=== PATIENT | female | born 1965 | race Caucasian/White ===

== ENCOUNTER → 2017-07-17 | Outpatient (CLI) | payer BC ==
--- NOTE | 2017-07-18 12:09 | MM ---
Reason for exam: screening (asymptomatic). Last mammogram was performed 1 year and 10 months ago. History: Family history of breast cancer in paternal aunt. Benign US LT VAD breast biopsy of the left breast, August 24, 2011. Took hormonal contraceptives for 13 years beginning at age 19. Physical Findings: A clinical breast exam by your physician is recommended on an annual basis and results should be correlated with mammographic findings. MG Screening Mammo w CAD Bilateral CC and MLO view(s) were taken. Prior study comparison: September 30, 2015, bilateral MG screening mammo w CAD. August 29, 2012, bilateral digital screening mammo w/CAD. The breast tissue is heterogeneously dense. This may lower the sensitivity of mammography. No suspicious abnormality. Left biopsy marker noted. No significant changes when compared with prior studies. ASSESSMENT: Negative, BI-RAD 1 RECOMMENDATION: Routine screening mammogram of both breasts in 1 year.
== END | disposition home or self-care (01) ==
LOC: RADMAMWWP 06:50
PROVIDERS: ATTEND Family Medicine
DX: Z12.31 Encounter for screening mammogram for malignant neoplasm of breast (principal)
CPT/HCPCS: 77067

== ENCOUNTER → 2020-06-12 | Outpatient (CLI) | payer OTHER ==
--- NOTE | 2020-06-12 08:17 | CTL ---
EXAMINATION TYPE: CT Low Dose Lung DATE OF EXAM ORDERED: 06/12/2020 COMPARISON: None HISTORY: . Low Dose CT Lung Screening CT DLP: 47.[address] CTDI: 1.4 mGy IV CONTRAST USED: None. SCREENING VISIT: First visit COMPARISON: None. TECHNIQUE: Low dose computed tomography scan was performed through the chest at 1 millimeter thick se ctions and reconstructed images in the coronal plane at [address] DIAGNOSTIC QUALITY: Satisfactory FINDINGS: LUNG NODULES: Not presentLeft lung: no nodules identified.Right lung: no nodules identified. LUNGS: COPD: Severity: None Fibrosis: Severity:None Lymph nodes: None Other findings: None RIGHT PLEURAL SPACE: Effusion: None Calcification: None Thickening: None Pneumothorax: None LEFT PLEURAL SPACE: Effusion: None Calcification: None Thickening: None Pneumothorax: None HEART: Heart Size: Mildly enlarged Coronary calcification: Mild Pericardial effusion: None OTHER FINDINGS: Upper abdomen: No significant abnormality Bony thorax: Degenerative changes Supraclavicular region: No significant abnormalityOther: No significant abnormalityI IMPRESSION: No suspicious pulmonary nodules identified. FOLLOW UP CT CHEST RECOMMENDATION: Follow-up screening in one year CT LUNG RAD: LUNG RAD CATEGORY 1 negative
== END | disposition home or self-care (01) ==
LOC: RADCTMAIN 07:47
PROVIDERS: ATTEND Family Medicine
DX: Z12.2 Encounter for screening for malignant neoplasm of respiratory organs (principal); F17.210 Nicotine dependence, cigarettes, uncomplicated
CPT/HCPCS: 71271

== ENCOUNTER 2020-08-11 08:38 | Day surgery (SDC) | payer OTHER ==
[2020-08-07 09:26] VITALS: BMI 18.3
[~2020-08-11 08:38] MED LIST: LACTATED RINGERS 1,000 ML IV SCH; LIDOCAINE 1% (10MG/ML) FOR IV START INTRADERMA PRN
[2020-08-11] MEDS ORDERED: PROPOFOL 10 MG/ML 20 ML VIAL IV ONE (09:09)
[2020-08-11 09:10] VITALS: RESP 16; TEMP 98.7
--- NOTE | 2020-08-11 09:25 | P.GSHP ---
History of Present Illness H&P Date: 08/11/20 Chief Complaint: History of colon polyps Patient is here today for colonoscopy. Last colonoscopy 2018. Patient has residual cecal adenomatous polyp. No bowel complaints. Past Medical History Past Medical History: Asthma, Osteoarthritis (OA) Additional Past Medical History / Comment(s): allergy induced asthma, allergies, hx. colon polyps History of Any Multi-Drug Resistant Organisms: None Reported Past Surgical History: Section, Tonsillectomy Additional Past Surgical History / Comment(s): multiple surg. right wrist, co lonoscopy Past Anesthesia/Blood Transfusion Reactions: No Reported Reaction Smoking Status: Current every day smoker - Past Family History Father Family Medical History: Cancer Medications and Allergies Home Medications Medication Instructions Recorded Confirmed Type Albuterol Inhaler (Mhu) [Ventolin 1 - 2 puff INHALATION Q6HR PRN 12/31/15 08/11/20 History Hfa Inhaler] Calcium Carbonate [Calcium] 600 mg PO DAILY 12/31/15 08/11/20 History Cholecalciferol [Vitamin D3] 1,000 unit PO DAILY 12/31/15 08/11/20 History Cyanocobalamin [Vitamin B-12] 500 mcg PO DAILY 12/31/15 08/11/20 History Loratadine [Claritin] 10 mg PO DAILY 12/31/15 08/11/20 History Multivit with Calcium,Iron,Min 1 each PO DAILY 12/31/15 08/11/20 History [Women's Daily Multivitamin] Vitamin B Complex 1 each PO DAILY 12/31/15 08/11/20 History Vitamin E 400 unit PO DAILY 08/07/20 08/11/20 History Allergies Allergy/AdvReac Type Severity Reaction Status Date / Time cefpodoxime proxetil Allergy Rash/Hives Verified 08/11/20 08:51 [From Vantin] cephalexin monohydrate Allergy Rash/Hives Verified 08/11/20 08:51 [From Keflex] erythromycin base Allergy Rash/Hives Verified 08/11/20 08:51 Penicillins Allergy Rash/Hives Verified 08/11/20 08:51 Tetracyclines Allergy Rash/Hives Verified 08/11/20 08:51 tobramycin Allergy Rash/Hives Verified 08/11/20 08:51 Surgical - Exam Vital Signs Temp Pulse Resp BP Pulse Ox 98.7 F 74 16 125/78 97 08/11/20 09:05 08/11/20 09:05 08/11/20 09:05 08/11/20 09:05 08/11/20 09:05 Physical exam: General: Well-developed, well-nourished HEENT: Normocephalic, sclerae nonicteric Abdomen: Nontender, nondistended Extremities: No edema Neuro: Alert and oriented Assessment and Plan (1) Colon cancer screening Narrative/Plan: Will proceed with colonoscopy at this time Current Visit: No Status: Acute Code(s): Z12.11 - ENCOUNTER FOR SCREENING FOR MALIGNANT NEOPLASM OF COLON SNOMED Code(s): 491196461
--- NOTE | 2020-08-11 09:41 | P.PCN ---
Date of Procedure: 08/11/20 Procedure(s) Performed: PREOPERATIVE DIAGNOSIS: Colon cancer screening with history of polyps POSTOPERATIVE DIAGNOSIS: Normal exam PROCEDURE: Colonoscopy ANESTHESIA: MAC SURGEON: Vik Rendon M.D. SPECIMENS: None ENDOSCOPIC PROCEDURE: The patient was placed on the endoscopy table in the left decubitus position. The Olympus colonoscope was inserted into the anus and passed under direct visualization to the base of the cecum. The appendiceal orifice was visualized. From that point the scope was slowly withdrawn inspecting all surfaces carefully. There were no neoplastic inflammatory or polypoid lesions throughout the cecum, ascending, transverse, descending, sigmoid and rectum. There was no visible diverticulosis noted. Digital rectal examination was normal. The patient was taken to the recovery room in stable condition per anesthesia guidelines. RECOMMENDATIONS: Resume diet. Follow-up colonoscopy 5 years.
[2020-08-11 09:55] VITALS: BP 104/66; PULSE 58
== END 2020-08-11 10:27 | disposition home or self-care (01) ==
LOC: ORWHC2ENDO 08:38
PROVIDERS: ATTEND Surgery
DX: Z12.11 Encounter for screening for malignant neoplasm of colon (principal); J45.909 Unspecified asthma, uncomplicated; M19.90 Unspecified osteoarthritis, unspecified site; F17.210 Nicotine dependence, cigarettes, uncomplicated; Z86.010 Personal history of colon polyps; Z80.9 Family history of malignant neoplasm, unspecified; Z88.1 Allergy status to other antibiotic agents; Z88.0 Allergy status to penicillin; Z88.8 Allergy status to other drugs, medicaments and biological substances; Z79.899 Other long term (current) drug therapy
CPT/HCPCS: 45378; J2704

== ENCOUNTER → 2020-08-12 | Outpatient (CLI) | payer OTHER ==
--- NOTE | 2020-08-12 12:58 | BD ---
EXAMINATION TYPE: Axial Bone Density DATE OF EXAM: 08/12/2020 COMPARISON: Prior DEXA study report 2005 CLINICAL HISTORY: Postmenopausal female Height: 65 Weight: 116.1 FRAX RISK QUESTIONS: Alcohol (3 or more units per day): no Family History (Parent hip fracture): no Glucocorticoids (More than 3mos): no (Ex: prednisone, prednisolone, methylprednisolone, dexamethasone, and hydrocortisone). History of Fracture in Adulthood: no Secondary Osteoporosis: 1. Type 1 Diabetes: no 2. Hyperthyroidism: no 3. Menopause before 45: no 4. Malnutrition: no 5. Chronic liver disease: no Rheumatoid Arthritis: no Current Tobacco Use: yes RISK FACTORS HISTORY OF: Surgery to Spine/Hip(right/left)/Wrist (right/left): no Family History of Osteoporosis: yes Active: yes Diet low in dairy products/other sources of calcium: no Postmenopausal woman: age 53 Lost more than 2 inches in height since high school: no MEDICATIONS: allergy meds Additional History: EXAM MEASUREMENTS: Bone mineral densitometry was performed using the [employer]. Bone mineral density as measured about the Lumbar spine is: ----- L1-L4(G/cm2): 1.293 T Score Values are as follows: ----- L2: 0.0 ----- L3: 1.5 ----- L4: 2.2 ----- L1-L4: 0.9 Bone mineral density has: decreased -2.0 % since study of: 04.14.2006 Bone mineral density about the R hip (g/cm2): 0.798 Bone mineral density about the L hip (g/cm2): 0.869 T Score values are as follows: -----R Neck: -1.8 -----L Neck: -1.2 -----R Total: -1.0 -----L Total: -0.6 Bone mineral density has: decreased -12.8 % since study of: 04.14.2006 IMPRESSION: Osteopenia (T Score between -2.5 and -1). There is slightly increased risk of fracture and the patient may be considered for treatment. Re-Screen 2-5 years. NOTE: T-SCORE=SD OF THE YOUNG ADULT MEAN.
--- NOTE | 2020-08-13 13:26 | MM ---
Reason for exam: screening (asymptomatic). Last mammogram was performed 3 years and 1 month ago. History: Family history of breast cancer in paternal aunt. Benign US LT VAD breast biopsy of the left breast, August 24, 2011. Took hormonal contraceptives for 13 years beginning at age 19. Physical Findings: A clinical breast exam by your physician is recommended on an annual basis and results should be correlated with mammographic findings. MG Screening Mammo w CAD Bilateral CC, MLO, and XCCL view(s) were taken. Prior study comparison: July 17, 2017, bilateral MG screening mammo w CAD. September 30, 2015, bilateral MG screening mammo w CAD. The breast tissue is heterogeneously dense. This may lower the sensitivity of mammography. Previous mammotome biopsy in the left breast. There is no discrete abnormality. ASSESSMENT: Benign, BI-RAD 2 RECOMMENDATION: Routine screening mammogram of both breasts in 1 year.
== END | disposition home or self-care (01) ==
LOC: RADMAMWWP 08:26
PROVIDERS: ATTEND Family Medicine
DX: Z12.31 Encounter for screening mammogram for malignant neoplasm of breast (principal); Z80.3 Family history of malignant neoplasm of breast; M85.80 Other specified disorders of bone density and structure, unspecified site
CPT/HCPCS: 77067; 77080

== ENCOUNTER → 2022-02-22 | Outpatient (CLI) | payer OTHER ==
--- NOTE | 2022-02-22 16:15 | MM ---
Reason for Exam: Additional evaluation requested from abnormal screening. Last screening mammogram was performed less than 1 month ago. Patient History: Menarche at age 10. First Full-Term at age 21. Postmenopausal. Patient has history of breast feeding. Hormonal Contraceptives for 13 years from age 19 until age 32. 08/24/2011, Benign Core Biopsy on the left side. Paternal aunt had breast cancer. Risk Values: Liane 5 year model risk: 1.5%. NCI Lifetime model risk: 9.1%. Prior Study Comparison: 08/12/2011 Bilateral Diagnostic Mammogram, [facility]. 08/12/2011 Bilateral Diagnostic Ultrasound, [facility]. 02/27/2012 Left Diagnostic Ultrasound, [facility]. 08/29/2012 Bilateral Screening Mammogram, [facility]. 09/30/2015 Bilateral Screening Mammogram, [facility]. 07/17/2017 Bilateral Screening Mammogram, [facility]. 08/12/2020 Bilateral Screening Mammogram, [facility]. 02/16/2022 Bilateral MG screening mammo w CAD, [facility]. Tissue Density: Left: The breast tissue is heterogeneously dense. This may lower the sensitivity of mammography. Findings: Analyzed By CAD. There is a persistent circumscribed density within the medial aspect left breast measuring 0.4 cm in diameter and located 5 cm from the nipple. This area appears to correspond to the ultrasound abnormality of the lymph node. Short-term follow-up in 6 months can be performed. Overall Assessment: Probably benign, BI-RAD 3 Management: Diagnostic Mammogram of the left breast in 6 months. Diagnostic Breast Ultrasound of the left breast in 6 months. A negative mammogram report should not preclude additional follow up of suspicious palpable abnormalities. Patient should continue monthly self breast exam. A clinical breast exam by your physician is recommended on an annual basis and results should be correlated with mammographic findings. Electronically signed and approved by: Jose Guallpa D.O. Radiologis
--- NOTE | 2022-02-22 16:15 | USB ---
Patient History: Menarche at age 10. First Full-Term at age 21. Postmenopausal. Patient has history of breast feeding. Hormonal Contraceptives for 13 years from age 19 until age 32. 08/24/2011, Benign Core Biopsy on the left side. Paternal aunt had breast cancer. Risk Values: Liane 5 year model risk: 1.5%. NCI Lifetime model risk: 9.1%. Technique: Method: Targeted. Prior Study Comparison: 07/17/2017 Bilateral Screening Mammogram, [facility]. 08/12/2020 Bilateral Screening Mammogram, [facility]. 02/16/2022 Bilateral MG screening mammo w CAD, [facility]. Findings: The medial section of the breast of the left breast, the axilla of the left breast and the retroareolar of the left breast were scanned. Electronically signed and approved by: Jose Guallpa D.O. Radiologis
== END | disposition home or self-care (01) ==
LOC: RADMAMWWP 14:43
PROVIDERS: ATTEND Family Medicine
DX: R92.8 Other abnormal and inconclusive findings on diagnostic imaging of breast (principal); Z78.0 Asymptomatic menopausal state; Z80.3 Family history of malignant neoplasm of breast
CPT/HCPCS: 77065

== ENCOUNTER → 2022-08-15 | Outpatient (CLI) | payer OTHER ==
--- NOTE | 2022-08-15 08:46 | MM ---
Reason for Exam: Follow-up at short interval from prior study. Last screening mammogram was performed 6 month(s) ago. Patient History: Menarche at age 10. First Full-Term at age 21. Postmenopausal. Patient has history of breast feeding. Hormonal Contraceptives for 13 years from age 19 until age 32. 08/24/2011, Benign Core Biopsy on the left side. Paternal aunt had breast cancer. Risk Values: Liane 5 year model risk: 1.5%. NCI Lifetime model risk: 9.1%. Prior Study Comparison: 09/30/2015 Bilateral Screening Mammogram, [facility]. 07/17/2017 Bilateral Screening Mammogram, [facility]. 08/12/2020 Bilateral Screening Mammogram, [facility]. 02/16/2022 Bilateral MG screening mammo w CAD, [facility]. 02/22/2022 Left MG work up mamm w CAD LT, [facility]. Tissue Density: Left: The breast tissue is heterogeneously dense. This may lower the sensitivity of mammography. Findings: Analyzed By CAD. Mammotome biopsy clip left breast redemonstrated. There are 2-3 small benign-appearing round calcifications in the left breast redemonstrated. Roughly 4 mm oval up secured mass in the middle to posterior depth medial aspect left breast has similar appearance to most recent mammogram. No new or enlarging masses. Overall Assessment: Incomplete: need additional imaging evaluation, BI-RAD 0 Management: Diagnostic Breast Ultrasound of the left breast. Targeted ultrasound left breast. Patient should continue monthly self-breast exams. A clinical breast exam by your physician is recommended on an annual basis. This exam should not preclude additional follow-up of suspicious palpable abnormalities. Note on Liane scores and lifetime risk: 1. A Liane score greater than 3% is considered moderate risk. If this is the case, consider specialist referral to assess eligibility for a risk reducing agent. 2. If overall lifetime risk for the development of breast cancer is 20% or higher, the patient may qualify for future screening with alternating mammogram and breast MRI. Electronically signed and approved by: Devin Medrano M.D.
--- NOTE | 2022-08-15 09:14 | USB ---
Reason for Exam: Follow-up at short interval from prior study. Patient History: Menarche at age 10. First Full-Term at age 21. Postmenopausal. Patient has history of breast feeding. Hormonal Contraceptives for 13 years from age 19 until age 32. 08/24/2011, Benign Core Biopsy on the left side. Paternal aunt had breast cancer. Risk Values: Liane 5 year model risk: 1.5%. NCI Lifetime model risk: 9.1%. Technique: Method: Targeted. Prior Study Comparison: 08/12/2020 Bilateral Screening Mammogram, [facility]. 02/16/2022 Bilateral MG screening mammo w CAD, [facility]. 02/22/2022 Left MG work up mamm w CAD LT, [facility]. Findings: The lower outer quadrant of the left breast, the axilla of the left breast and the retroareolar of the left breast were scanned. Targeted ultrasound left breast shows 4 x 2 x 5 mm oval hypoechoic lesion 8:00 position and slightly larger by 3 x 4 mm oval anechoic lesion at 9:00 position. Both are similar to prior ultrasound. No new solid or cystic lesion seen. Overall Assessment: Benign, BI-RAD 2 Management: Screening Mammogram of both breasts in 7 months. Back on annual schedule. Results were given to the patient verbally at the time of exam. Electronically signed and approved by: Devin Medrano M.D.
== END | disposition home or self-care (01) ==
LOC: RADMAMWWP 08:10
PROVIDERS: ATTEND Family Medicine
DX: R92.8 Other abnormal and inconclusive findings on diagnostic imaging of breast (principal); N63.20 Unspecified lump in the left breast, unspecified quadrant; Z78.0 Asymptomatic menopausal state; Z80.3 Family history of malignant neoplasm of breast
CPT/HCPCS: 77065

== ENCOUNTER → 2023-04-04 | Outpatient (CLI) | payer OTHER ==
--- NOTE | 2023-04-04 17:33 | BD ---
EXAMINATION TYPE: Axial Bone Density DATE OF EXAM: 04/04/2023 CLINICAL HISTORY: 58 years old Female. ICD-10 CODE: Z78.0 post menopausal Height: 65 Weight: 112.1 FRAX RISK QUESTIONS: Alcohol (3 or more units per day): no Family History (Parent hip fracture): no Glucocorticoids (More than 3mos): no (Ex: prednisone, prednisolone, methylprednisolone, dexamethasone, and hydrocortisone). History of Fracture in Adulthood: no Secondary Osteoporosis: 1. Type 1 Diabetes: no 2. Hyperthyroidism: no 3. Menopause before 45: no 4. Malnutrition: no 5. Chronic liver disease: no Rheumatoid Arthritis: no Current Tobacco Use: yes RISK FACTORS HISTORY OF: Surgery to Spine/Hip(right/left)/Wrist (right/left): no Additional History: EXAM MEASUREMENTS: Bone mineral densitometry was performed using the [email or web address] System. Bone mineral density as measured about the Lumbar spine is: ----- L1-L4(G/cm2): 1.254 T Score Values are as follows: ----- L1: -0.3 ----- L2: -0.2 ----- L3: 1.1 ----- L4: 1.5 ----- L1-L4: 0.6 Z Score Values are as follows: ----- L1: 1.2 ----- L2: 1.4 ----- L3: 2.7 ----- L4: 3.0 ----- L1-L4: 2.1 Bone mineral density has: decreased -3.0 % since study of: 08.02.2020 Bone mineral density about the R hip (g/cm2): 0.835 Bone mineral density about the L hip (g/cm2): 0.893 T Score values are as follows: -----R Neck: -2.1 -----L Neck: -1.6 -----R Total: -1.4 -----L Total: -0.9 Z Score values are as follows: -----R Neck: -0.6 -----L Neck: -0.1 -----R Total: -0.2 -----L Total: 0.2 Bone mineral density has: decreased -5.1 % since study of: 4.18.2020 FRAX%s: The graph provided illustrates a 8.2% chance for a major osteoporotic fx and a 1.9% chance fo r the hips probability for fx in 10 years time. IMPRESSION: Osteopenia (T Score between -2.5 and -1). There is slightly increased risk of fracture and the patient may be considered for treatment. Re-Screen 2-5 years. NOTE: T-SCORE=SD OF THE YOUNG ADULT MEAN.
--- NOTE | 2023-04-05 08:45 | MM ---
Reason for Exam: Screening (asymptomatic). Last mammogram was performed 1 year(s) and 1 month(s) ago. Patient History: Menarche at age 10. First Full-Term at age 21. Postmenopausal. Patient has history of breast feeding. Hormonal Contraceptives for 13 years from age 19 until age 32. 08/24/2011, Benign Core Biopsy on the left side. Paternal aunt had breast cancer. Risk Values: Liane 5 year model risk: 1.6%. NCI Lifetime model risk: 8.9%. Prior Study Comparison: 02/16/2022 Bilateral MG screening mammo w CAD, [facility]. 02/22/2022 Left MG work up mamm w CAD LT, [facility]. 08/15/2022 Left MG diagnostic mammo LT w CAD, [facility]. Tissue Density: The breast tissue is heterogeneously dense. This may lower the sensitivity of mammography. Findings: Analyzed By CAD. There is no suspicious group of microcalcifications or new suspicious mass in either breast. Overall Assessment: Benign, BI-RAD 2 Management: Screening Mammogram of both breasts in 1 year. . Patient should continue monthly self-breast exams. A clinical breast exam by your physician is recommended on an annual basis. This exam should not preclude additional follow-up of suspicious palpable abnormalities. Note on Liane scores and lifetime risk: 1. A Liane score greater than 3% is considered moderate risk. If this is the case, consider specialist referral to assess eligibility for a risk reducing agent. 2. If overall lifetime risk for the development of breast cancer is 20% or higher, the patient may qualify for future screening with alternating mammogram and breast MRI. Electronically signed and approved by: Pierre Paige M.D. Radiologis
--- NOTE | 2023-04-08 16:09 | CTL ---
EXAMINATION TYPE: CT Low Dose Lung DATE OF EXAM: 04/04/2023 8:13 AM CLINICAL INDICATION:Female, 58 years old with history of Z12.2 Screen F17.210 Nicotine dependence; pe rsonal h/o tobacco use, current smoker 1 ppd x40 years , history of tobacco use. COMPARISON: 06/12/2020 CT Low Dose Lung TECHNIQUE: CT scan of the chest obtained without contrast from approximately the lung apices through the upper abdomen. Axial, coronal and sagittal reformatted images were obtained. Low dose technique w as utilized for nodule screening purposes. CT DLP: 43.7 mGycm, Automated exposure control for dose reduction was used. CT Contrast: Contrast used: None Oral contrast used: None FINDINGS: Lack of intravenous contrast and low dose technique limits the evaluation of the vascular and soft ti ssue structures. LUNGS: No evidence of pulmonary fibrosis. No evidence of focal consolidation, pneumothorax or pleural effusion. There are centrilobular emphysema changes bilaterally mostly in the upper lobes, mild in degree, similar to prior. Mild biapical fibronodular changes. Stable mild linear opacities in the jagjit g bases suggestive of scarring. Nodules: RUL: Adjacent 3 mm nodules image 34 series 4, stable.. RML: A 5.5 mm nodule image 185, stable.. RLL: None. ZACHARIAH: A 2.6 mm nodule image 50, was likely present before and minimally smaller.. LLL: None. AIRWAY: Patent and unremarkable. LOWER NECK: No significant findings.. HEART AND VASCULATURE: Heart is normal in size. No significant coronary artery calcifications. Minim al calcification of the arch and proximal left subclavian artery, and descending segment. Aorta is n ormal in size, 3.2 cm ascending and 2.4 cm descending. Pulmonary trunk is not enlarged, 2.2 cm. MEDIASTINUM: No gross evidence of adenopathy. SOFT TISSUES/LYMPH NODES: Unremarkable soft tissues. No axillary adenopathy. UPPER ABDOMEN: No significant findings. MUSCULOSKELETAL: Mild to moderate disc degeneration changes are present throughout the thoracolumbar spine. No acute findings. IMPRESSION: 1. A few small lung nodules, stable from the prior exam and benign in appearance. 2. Mild centrilobular emphysematous changes. CT LUNG RAD AND CT CHEST RECOMMENDATION: Lung-Rad 2 Benign Appearance or Behavior: Continue annual sc reening with LDCT in 12 months. C Modifier (Personal history of lung cancer?): No. S Modifier (Other clinically significant or potentially significant findings?): No. Recommend smoking cessation (if current smoker), or continuation of smoking cessation (if prior smoke r). Annual screening for lung cancer with low-dose computed tomography is recommended in adults ages 55 to 77 years who have a 30 pack-year smoking history and currently smoke or have quit within the pa st 15 years. Screening should be discontinued once a person has not smoked for 15 years or develops a health problem that substantially limits life expectancy or the ability or willingness to have curat lynsey lung surgery. Lung rads 2021 [email or web address]
== END | disposition home or self-care (01) ==
LOC: RADMAMWWP 07:14
PROVIDERS: ATTEND Family Medicine
DX: Z12.31 Encounter for screening mammogram for malignant neoplasm of breast (principal); Z12.2 Encounter for screening for malignant neoplasm of respiratory organs; J43.2 Centrilobular emphysema; R91.8 Other nonspecific abnormal finding of lung field; Z80.3 Family history of malignant neoplasm of breast; F17.210 Nicotine dependence, cigarettes, uncomplicated; Z78.0 Asymptomatic menopausal state; M85.89 Other specified disorders of bone density and structure, multiple sites
CPT/HCPCS: 71271; 77063; 77067; 77080

== ENCOUNTER → 2024-04-19 | Outpatient (CLI) | payer OTHER ==
--- NOTE | 2024-04-22 07:44 | MM ---
Reason for Exam: Screening (asymptomatic). Last mammogram was performed 1 year(s) and 1 month(s) ago. Patient History: Menarche at age 10. First Full-Term at age 21. Postmenopausal. Patient has history of breast feeding. Hormonal Contraceptives for 13 years from age 19 until age 32. 08/24/2011, Benign Core Biopsy on the left side. Paternal aunt had breast cancer. Risk Values: Liane 5 year model risk: 1.6%. NCI Lifetime model risk: 8.7%. Prior Study Comparison: 02/22/2022 Left MG work up mamm w CAD LT, [facility]. 08/15/2022 Left MG diagnostic mammo LT w CAD, [facility]. 04/04/2023 Bilateral MG 3D screening mammo w/cad, [facility]. Tissue Density: The breasts are heterogeneously dense, which may obscure small masses. Findings: Analyzed By CAD. Left breast biopsy clip. Right breast: There is no suspicious group of microcalcifications or new suspicious mass. Left breast: There is no suspicious group of microcalcifications or new suspicious mass. Benign-appearing calcifications left breast. Overall Assessment: Benign, BI-RAD 2 Management: Screening Mammogram of both breasts in [address] [facility] will attempt to contact patient to return for supplemental views and ultrasound if indicated. Patient should continue monthly self-breast exams. A clinical breast exam by your physician is recommended on an annual basis. This exam should not preclude additional follow-up of suspicious palpable abnormalities. Note on Liane scores and lifetime risk: 1. A Liane score greater than 3% is considered moderate risk. If this is the case, consider specialist referral to assess eligibility for a risk reducing agent. 2. If overall lifetime risk for the development of breast cancer is 20% or higher, the patient may qualify for future screening with alternating mammogram and breast MRI. [facility], , 04/22/2024 7:41 AM. Electronically signed and approved by: Anthony Pedroza DO
== END | disposition home or self-care (01) ==
LOC: RADMAMWWP 11:08
PROVIDERS: ATTEND Family Medicine
DX: Z12.31 Encounter for screening mammogram for malignant neoplasm of breast (principal); Z78.0 Asymptomatic menopausal state; Z80.3 Family history of malignant neoplasm of breast; R92.333 Mammographic heterogeneous density, bilateral breasts; Z98.82 Breast implant status
CPT/HCPCS: 77067

== ENCOUNTER → 2024-04-19 | Outpatient (CLI) | payer OTHER ==
--- NOTE | 2024-04-19 11:51 | CTL ---
EXAMINATION TYPE: CT Low Dose Lung DATE OF EXAM ORDERED: 04/19/2024 COMPARISON: 04/04/2023 CLINICAL INDICATION: Female, 59 years old with history of Z12.2 LUNG CA SCREEN F17.210 CURRENT SMOKER ; [facility], lung CA screening, current smoker, Lung cancer screening, History of Smoking/tobacco use. TECHNIQUE: Low dose computed tomography scan was performed through the chest at 1 mm thick sections a nd reconstructed images in multiple planes at 1 mm and [address] DLP: [address] CTDI: 1.57 mGy Automated exposure control for dose reduction was used. CT DIAGNOSTIC QUALITY: Satisfactory FINDINGS: There are mild emphysematous changes. There is a stable 5 mm nodule right middle lobe. There are few scattered stable micronodules The lungs are clear and there is no abnormal airspace consolidation. There is stable mild interstitia l scarring in the right lung base posteriorly. There is no mediastinal, hilar or axillary adenopathy. There is no pleural effusion, pleural thickening or pneumothorax. No focal osseous lesions are seen. Limited scans the upper abdomen reveals no gross abnormality IMPRESSION: 1. Lung rads Category 2 benign. Continue routine screening at yearly intervals. 2. No acute cardiopulmonary disease 3. Stable mild emphysematous changes. [facility], , 04/19/2024 11:49 AM
== END | disposition home or self-care (01) ==
LOC: RADCTMAIN 11:24
PROVIDERS: ATTEND Family Medicine
DX: Z12.2 Encounter for screening for malignant neoplasm of respiratory organs (principal); F17.210 Nicotine dependence, cigarettes, uncomplicated; J43.9 Emphysema, unspecified
CPT/HCPCS: 71271